=== PATIENT | male | born 1960 | race Caucasian/White ===

== ENCOUNTER 2024-02-15 14:11 | Emergency (ER) | payer BC, OTHER ==
[2024-02-15] MEDS: Lidocaine 1% with EPINEPHrine 1:100,000 20 ML MDV INJECT ONE (14:50)
== END 2024-02-15 15:20 | disposition home or self-care (01) ==
LOC: LB.ED 14:11
DX: S61.412A Laceration without foreign body of left hand, initial encounter (principal); W56.51XA Bitten by other fish, initial encounter
CPT/HCPCS: 12002; 99282; 99283